=== PATIENT | female | born 1980 | race Caucasian/White ===

== ENCOUNTER 2019-08-07 21:21 | Emergency (ER) | payer MEDICAID ==
[~2019-08-07] VITALS: Ht 154.9 cm; Wt 63.0 kg
[2019-08-07 21:31] VITALS: Ht 154.9 cm; Wt 63.0 kg
[2019-08-07 22:19] LABS: BASOPHIL % 0.5 % (0-2); PLATELET COUNT 319 x10^3mcL (130-400)
[2019-08-07 22:25] LABS: RED CELL DISTRIBUTION WIDTH 15.1 % (11.5-14.5)
[2019-08-07 22:57] LABS: CALCIUM 8.6 mg/dL (8.5-10.1); CARBON DIOXIDE 28.6 mmol/L (21-32); CHLORIDE SERUM 105 mmol/L (98-107); CREATININE SERUM 0.7 mg/dL (0.6-1.0); GFR1 > 60 mL/min; GLUCOSE SERUM 85 mg/dL (74-106); POTASSIUM SERUM 3.7 mmol/L (3.5-5.1); SODIUM SERUM 142 mmol/L (136-145)
[2019-08-07 23:03] LABS: ALKALINE PHOSPHATASE 77 U/L (46-116); ALT/SGPT 27 U/L (14-59); AST/SGOT 20 U/L (15-37); TOTAL PROTEIN, SERUM 7.1 g/dL (6.4-8.2)
[2019-08-07 23:40] VITALS: BP 111/59
== END 2019-08-07 23:40 | disposition home or self-care (01) ==
LOC: ED 21:21
PROVIDERS: Emergency Medicine
DX: R07.89 Other chest pain (principal); R00.2 Palpitations; R05 Cough; J45.909 Unspecified asthma, uncomplicated
CPT/HCPCS: 36415; 85378; Q0092